=== PATIENT | male | born 1990 ===

== ENCOUNTER 2017-03-22 05:41 | Emergency (ER) | payer MEDICAID ==
[2017-03-22 06:03] VITALS: BP 137/74; PULSE 86; RESP 18; TEMP 98.6; O2SAT 97
[2017-03-22] MEDS ORDERED: DiphenhydrAMINE 50 mg/ml Inj IVP STA (06:04)
--- NOTE | 2017-03-22 06:16 | ED PDOC ---
HPI: Allergic Reaction Time Seen by Provider: 03/22/17 06:04 Chief Complaint (Nursing): Allergic Reaction Chief Complaint (Provider): right upper lip swelling History Per: Patient History/Exam Limitations: no limitations Onset/Duration Of Symptoms: Mins Current Symptoms Are (Timing): Still Present Additional Complaint(s): 26yo male with no PMHx presents to the ED from work at [employer] with c/o right upper lip swelling. Denies difficulty swallowing, breathing, or speaking. Patient states he retains normal strength with no headache. 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 Reports eating chicken and rice with water at work tonight. Past Medical History Reviewed: Historical Data, Nursing Documentation, Vital Signs Vital Signs: Last Vital Signs Temp 98.6 F 03/22/17 06:00 Pulse 86 03/22/17 06:00 Resp 18 03/22/17 06:00 BP 137/74 03/22/17 06:00 Pulse Ox 97 03/22/17 06:00 - Medical History PMH: No Chronic Diseases - Surgical History Surgical History: No Surg Hx - Family History Family History: States: No Known Family Hx - Social History Current smoker - smoking cessation education provided: No - Immunization History Hx Tetanus Toxoid Vaccination: No Hx Influenza Vaccination: No Hx Pneumococcal Vaccination: No - Home Medications Home Medications: Ambulatory Orders Medication Instructions Recorded DiphenhydrAMINE [Benadryl] 25 mg PO Q6 PRN #12 cap 03/22/17 Prednisone 50 mg PO DAILY #4 tab 03/22/17 - Allergies Allergies/Adverse Reactions: Allergies Allergy/AdvReac Type Severity Reaction Status Date / Time shrimp Allergy SWELLING Verified 03/22/17 05:59 Review of Systems ROS Statement: Except As Marked, All Systems Reviewed And Found Negative Constitutional: Positive for: Other (no difficulty speaking ) ENT: Positive for: Other (right upper lip swelling, no difficulty swallowing ) Respiratory: Negative for: Shortness of Breath Neurological: Negative for: Headache Physical Exam - Reviewed Nursing Documentation Reviewed: Yes Vital Signs Reviewed: Yes - Physical Exam Appears: Positive for: Well, No Acute Distress Head Exam: Positive for: ATRAUMATIC, NORMAL INSPECTION, NORMOCEPHALIC Skin: Positive for: Normal Color, Warm, Dry Eye Exam: Positive for: Normal appearance, EOMI, PERRL ENT: Positive for: Pharynx Is (patent ), Other (edema right side of upper lip extending into distal cheek, no gingival tenderness, no induration or erythema, no tongue swelling) Neck: Positive for: Normal, Painless ROM, Supple Cardiovascular/Chest: Positive for: Regular Rate, Rhythm. Negative for: Murmur , Tachycardia Respiratory: Positive for: Normal Breath Sounds. Negative for: Wheezing, Respiratory Distress Pulses-Dorsalis Pedis (L): 2+ Pulses-Dorsalis Pedis (R): 2+ Pulses-Radial (L): 2+ Pulses-Radial (R): 2+ Gastrointestinal/Abdominal: Positive for: Soft, Other (morbidly obese ). Negative for: Tenderness Back: Positive for: Normal Inspection Extremity: Positive for: Normal ROM. Negative for: Deformity, Swelling Neurologic/Psych: Positive for: Alert, Oriented, Other (neurologically intact ) . Negative for: Motor/Sensory Deficits - Laboratory Results Result Diagrams: 03/22/17 06:25 03/22/17 06:25 - ECG O2 Sat by Pulse Oximetry: 97 Pulse Ox Interpretation: Normal (RA) - Progress ED Course And Treament: 0605: IV benadryl and solu-medrol initiated for presumed early allergic reaction vs. angioedema. BMP and CBC ordered. 0715- improved, swelling mostly resolved. SPO2 normal. No SOB, normal swallow pattern. DC from ED. Scribe Attestation: Documented by Kajal Gee acting as a scribe for Emory Cuevas III, DO. Provider Scribe Attestation: All medical record entries made by the Scribe were at my direction and personally dictated by me. I have reviewed the chart and agree that the record accurately reflects my personal performance of the history, physical exam, medical decision making, and the department course for this patient. I have also personally directed, reviewed, and agree with the discharge instructions and disposition. Disposition - Clinical Impression Clinical Impression: Allergic reaction - Patient ED Disposition Is Patient to be Admitted: Transfer of Care Counseled Patient/Family Regarding: Studies Performed, Diagnosis, Need For Followup, Rx Given - Disposition Referrals: Jasper Alejandro MD [Staff Provider] - Disposition: Routine/Home Disposition Time: 07:00 Condition: STABLE Additional Instructions: Avoid driving for 5 hours as you may be drowsy. Take medications as directed. Return to ER for any worse or new symptoms. Prescriptions: DiphenhydrAMINE [Benadryl] 25 mg PO Q6 PRN #12 cap PRN Reason: Allergy Symptoms Prednisone 50 mg PO DAILY #4 tab Instructions: General Allergic Reaction (ED), Angioedema (ED) Patient Signed Over To: Mekhi Ponce Handoff Comments: pending blood work and reeval
[2017-03-22 06:43] LABS: BASO % 0.6 % (0.0-2.0); EOS # 0.1 K/uL (0.0-0.7); EOS % 1.5 % (0.0-4.0); HEMATOCRIT 41.2 % (35.0-51.0); LYMPH # 1.9 K/uL (1.0-4.3); LYMPH % 25.4 % (20.0-40.0); MEAN CELL VOLUME 83.6 fl (80.0-94.0); MEAN CORPUSCULAR HEMOGLOBIN 26.8 pg (27.0-31.0); MEAN PLATELET VOLUME 10.3 fl (7.2-11.7); MONO # 0.9 K/uL (0.0-0.8); MONO % 12.3 % (0.0-10.0); NEUT # 4.6 K/uL (1.8-7.0); NEUT % 60.2 % (50.0-75.0); NRBC % 0.1 % (0.0-0.0); RED CELL DISTRIBUTION WIDTH 15.7 % (11.5-14.5); WHITE BLOOD COUNT 7.7 K/uL (4.8-10.8)
[2017-03-22 06:54] LABS: BLOOD UREA NITROGEN 14 mg/dl (9-20); CALCIUM 8.6 mg/dL (8.4-10.2); CARBON DIOXIDE 26 mmol/L (22-30); CHLORIDE 105 mmol/L (98-107); GFR AFRICAN-AMERICAN > 60; GLUCOSE,RANDOM 94 mg/dL (75-110); POTASSIUM 3.7 MMOL/L (3.6-5.0); SODIUM 143 mmol/l (132-148)
== END 2017-03-22 07:40 | disposition home or self-care (01) ==
LOC: H.ER 05:41
DX: T78.40XA Allergy, unspecified, initial encounter (principal)

== ENCOUNTER 2018-01-07 06:07 | Emergency (ER) | payer MEDICAID, OTHER ==
[2018-01-07 06:33] VITALS: BP 122/71; PULSE 97; RESP 16; TEMP 97.9; O2SAT 98
--- NOTE | 2018-01-07 06:56 | ED PDOC ---
HPI: General Adult Chief Complaint (Provider): rectal pain History Per: Patient History/Exam Limitations: no limitations Onset/Duration Of Symptoms: Days Current Symptoms Are (Timing): Still Present Severity: Moderate Pain Scale Rating Of: 7 Location: buttock/rectal area Quality: sharp Similar Symptoms Previously: no <Staci Albarran - Last Filed: 01/07/18 07:10> <Terence Russell - Last Filed: 01/08/18 03:27> Time Seen by Provider: 01/07/18 06:46 Chief Complaint (Nursing): Medical Clearance Additional Complaint(s): 27 yo M pmh obesity and ELISABET presented to ED with complaint of rectal pain of 2 days duration. States pain started at 2/10 2 days ago; now 7-8/10, and prevents him from sitting down. Denies blood in stool, or on toilet paper. Denies issues with constipation, denies straining. Denies having this problem in the past. Does not have PMD. (Staci Albarran) Supervising Attending Note - Supervising Attending Note The Documented history was done by the: [employer] The documented physical exam was done by the: Phys[employer] - Attestation: I have personally seen and examined this patient.: Yes I have fully participated in the care of the patient.: Yes I have reviewed all pertinent clinical information, including history, physical exam and plan: Yes <Terence Russell - Last Filed: 01/08/18 03:27> Past Medical History - Medical History PMH: No Chronic Diseases - Surgical History Surgical History: No Surg Hx - Family History Family History: States: Unknown Family Hx - Immunization History Hx Tetanus Toxoid Vaccination: No Hx Influenza Vaccination: No Hx Pneumococcal Vaccination: No <Staci Albarran - Last Filed: 01/07/18 07:10> <Terence Russell - Last Filed: 01/08/18 03:27> Vital Signs: Last Vital Signs Temp 97.9 F 01/07/18 06:29 Pulse 97 H 01/07/18 06:29 Resp 16 01/07/18 06:29 BP 122/71 01/07/18 06:29 Pulse Ox 98 01/07/18 07:10 - Home Medications Home Medications: Ambulatory Orders Medication Instructions Recorded DiphenhydrAMINE [Benadryl] 25 mg PO Q6 PRN #12 cap 03/22/17 Prednisone 50 mg PO DAILY #4 tab 03/22/17 Hard Fat/Phenylephrine Rena Lara 2 sup MS BID #56 sup 01/07/18 [Hemorrhoidal 88.7%-0.25%] - Allergies Allergies/Adverse Reactions: Allergies Allergy/AdvReac Type Severity Reaction Status Date / Time shrimp Allergy SWELLING Verified 01/07/18 06:29 Review of Systems Constitutional: Negative for: Fever, Chills, Weakness Cardiovascular: Negative for: Chest Pain, Palpitations Respiratory: Negative for: Cough, Shortness of Breath Gastrointestinal: Positive for: Rectal Pain. Negative for: Nausea, Vomiting, Constipation, Melena, Hematochezia Genitourinary Male: Negative for: Dysuria, Frequency <Staci Albarran - Last Filed: 01/07/18 07:10> Physical Exam - Physical Exam Appears: Positive for: No Acute Distress Head Exam: Positive for: NORMAL INSPECTION Skin: Positive for: Normal Color Eye Exam: Positive for: Normal appearance Neck: Positive for: Supple Cardiovascular/Chest: Positive for: Chest Non Tender Respiratory: Negative for: Accessory Muscle Use, Respiratory Distress Rectal: Positive for: Hemorrhoids (non-thrombosed, collapsible), Tenderness (at 6 oclock position). Negative for: Black Stool (brown stool on glove), Blood Streaked Stool (no blood seen) Extremity: Negative for: Deformity Neurologic/Psych: Positive for: Alert, Oriented <Staci Albarran - Last Filed: 01/07/18 07:10> - ECG O2 Sat by Pulse Oximetry: 98 <Staci Albarran - Last Filed: 01/07/18 07:10> Medical Decision Making <Staci Albarran - Last Filed: 01/07/18 07:10> <Terence Russell - Last Filed: 01/08/18 03:27> Medical Decision Makin yo M with 2 days duration rectal pain; likely hemorrhoids. Rectal exam done w/ Dr. Russell present in room; no external hemorrhoids visible ; on SONU, tenderness at 6 oclock position, soft, collapsible mass. No blood streaking on glove, no black stool on glove. Pt stable for discharge with prescription for hemorrhoidal suppositories. Pt seen/discussed w/ Dr. Russell. (Staci Albarran) Disposition - Patient ED Disposition Is Patient to be Admitted: No - Disposition Disposition: Routine/Home Disposition Time: 07:07 <Staci Albarran - Last Filed: 01/07/18 07:10> <Terence Russell - Last Filed: 01/08/18 03:27> - Clinical Impression Clinical Impression: Acute hemorrhoid - Disposition Referrals: [facility] [place] [Outside] Condition: STABLE Additional Instructions: Please follow up at [facility] at [address] [place] [phone] for appointment. Please take medication as prescribed. Return to ED if symptoms worsen or you have rectal bleeding. Prescriptions: Hard Fat/Phenylephrine Rena Lara [Hemorrhoidal 88.7%-0.25%] 2 sup MS BID #56 sup Instructions: Hemorrhoids Forms: [facility] (Samoan)
== END 2018-01-07 07:09 | disposition home or self-care (01) ==
LOC: H.ER 06:07
DX: K64.9 Unspecified hemorrhoids (principal)